=== PATIENT | male | born 1965 | race Caucasian/White ===

== ENCOUNTER 2016-12-21 11:49 | Emergency (ER) | payer MEDICAID ==
[~2016-12-21] VITALS: Ht 182.9 cm; Wt 105.7 kg
[2016-12-21] MEDS ORDERED: SODIUM CHLORIDE 0.9% 1,000 ML IVB ONE (12:33)
[2016-12-21] MEDS ORDERED: HYDROmorphone HCL 2 MG/ML VL IV ONE (12:45)
[2016-12-21] MEDS ORDERED: ONDANSETRON HCL 4 MG/2 ML VIAL IV ONE (12:45)
[2016-12-21 12:55] LABS: Basophils # (auto) 0 uL; Basophils % (auto) 0.3 % (0.0-2.0); CONDITION Y; Eosinophils # (auto) 0.1 uL; Eosinophils % (auto) 0.5 % (0.0-7.0); Hemoglobin 18.5 g/dL (13.5-17.5); Lymphocytes # (auto) 1.3 uL; Lymphocytes % (auto) 12.6 % (10.0-50.0); Mean Corpuscular Hemoglobin 32.1 pg (28.0-32.0); Mean Corpuscular Hgb Conc. 34.9 g/dL (32.0-36.0); Mean Corpuscular Volume 92.1 fL (80.0-100.0); Mean Platelet Volume 9.7 fL (7.4-10.4); Monocytes # (auto) 0.7 uL; Monocytes % (auto) 7.1 % (0.0-12.0); Neutrophils # (auto) 8.3 uL; Neutrophils % (auto) 79.5 % (37.0-80.0); Platelet Count (auto) 206 10^3/uL (140-450); Red Cell Distribution Width 13.2 % (11.6-16.0); White Blood Cell 10.4 10^3/uL (4.4-10.8)
[2016-12-21 13:13] LABS: Albumin 3.8 g/dL (3.4-5.0); BUN/Creatinine Ratio 26.3; Calcium 9.2 mg/dL (8.5-10.1)
[2016-12-21 13:16] LABS: Bilirubin, Total 1.1 mg/dL (0.2-1.0)
[2016-12-21 13:19] LABS: INR 0.98 (0.9-1.15); Partial Thromboplastin Time 28.2 sec (22.64-33.71); Prothrombin Time 10.7 sec (9.37-12.3)
[2016-12-21 13:26] LABS: Potassium 2.9 mmol/L (3.5-5.1)
[2016-12-21] MEDS ORDERED: POTASSIUM CHL 20MEQ/100ML 100 ML IV ONE (13:45)
[2016-12-21 14:04] LABS: Urine Bilirubin Negative (Negative); Urine Blood Negative /uL (Negative); Urine Color Yellow (Yellow); Urine Glucose Normal (Normal); Urine Mucus FEW (None Seen); Urine Nitrite Negative (Negative); Urine RBC 1 /hpf (0 - 3); Urine Squamous Epithelial Cell FEW /hpf (<5); Urine Urobilinogen Normal (Negative)
[2016-12-21 14:09] LABS: Urine Ketone 2+ (Negative)
[2016-12-21 16:09] VITALS: BP 138/96
== END 2016-12-21 16:21 | disposition home or self-care (01) ==
LOC: ER 11:49
DX: N23 Unspecified renal colic (principal); E87.6 Hypokalemia; F17.210 Nicotine dependence, cigarettes, uncomplicated; F12.10 Cannabis abuse, uncomplicated
CPT/HCPCS: 36415; 71010; 74176; 80053; 81001; 82150; 83605; 83690; 83735; 85025; 85610; 85730; 93005; 94761; 96361; 96365; 96366; 96375; 99285; J1170; J2405; J3480; J7030

== ENCOUNTER 2017-01-28 14:03 | Inpatient (IN) | payer MEDICAID ==
[~2017-01-28] VITALS: Ht 182.9 cm; Wt 99.7 kg
[2017-01-28] MEDS ORDERED: PANTOPRAZOLE 40 MG/10 ML VIAL IV STA (14:41)
[2017-01-28] MEDS ORDERED: SODIUM CHLORIDE 0.9% 1,000 ML IVB ONE (14:41)
[2017-01-28] MEDS ORDERED: ONDANSETRON HCL 4 MG/2 ML VIAL IV ONE (14:45)
[2017-01-28] MEDS ORDERED: HYDROmorphone HCL 2 MG/ML VL IV ONE (14:45)
[2017-01-28 15:00] LABS: Basophils # (auto) 0.1 uL; Basophils % (auto) 0.5 % (0.0-2.0); Eosinophils # (auto) 0 uL; Eosinophils % (auto) 0.2 % (0.0-7.0); Hematocrit 51.6 % (41.0-53.0); Hemoglobin 18.6 g/dL (13.5-17.5); Lymphocytes # (auto) 1.5 uL; Lymphocytes % (auto) 10.7 % (10.0-50.0); Mean Corpuscular Hemoglobin 32.6 pg (28.0-32.0); Mean Corpuscular Volume 90.7 fL (80.0-100.0); Mean Platelet Volume 9.4 fL (7.4-10.4); Monocytes # (auto) 0.4 uL; Neutrophils % (auto) 85.6 % (37.0-80.0); Nucleated Red Blood Cells % 0.1 %; Platelet Count (auto) 182 10^3/uL (140-450); Red Cell Distribution Width 13.4 % (11.6-16.0)
[2017-01-28 15:16] LABS: Potassium 3.6 mmol/L (3.5-5.1)
[2017-01-28 15:20] LABS: Albumin 3.9 g/dL (3.4-5.0); BUN/Creatinine Ratio 17.8; Calcium 8.9 mg/dL (8.5-10.1)
[2017-01-28 15:22] LABS: Bilirubin, Total 0.9 mg/dL (0.2-1.0); Total Protein 7.5 g/dL (6.4-8.2)
[2017-01-28] MEDS ORDERED: cefTRIAXone 1GM/50ML D5W 50 ML IV ONE (16:15)
[2017-01-28] MEDS ORDERED: TEMAZEPAM 15 MG CAP PO PRN (16:15)
[2017-01-28] MEDS ORDERED: LORazepam 0.5 MG TAB PO PRN (16:15)
[2017-01-28] MEDS ORDERED: PANTOPRAZOLE 40 MG/10 ML VIAL IV ONE (16:15)
[2017-01-28] MEDS ORDERED: DEXTROSE (50%) 50ML SYRG IV PRN (16:15)
[2017-01-28] MEDS ORDERED: HYDROcodone-ACET 5/325MG TAB PO PRN (16:15)
[2017-01-28] MEDS ORDERED: MORPHINE SULF INJ 2 MG/ML SYRINGE 1ML IV PRN (16:15)
[2017-01-28] MEDS ORDERED: PROMETHAZINE HCL 25 MG/ML 1ML IV PRN (16:15)
[2017-01-28] MEDS ORDERED: ACETAMINOPHEN 500 MG TAB PO PRN (16:15)
[2017-01-28] MEDS: SODIUM CHLORIDE 0.9% 1,000 ML IV SCH ×2 (16:22→23:50)
[2017-01-28 17:02] LABS: Urine Bilirubin Negative (Negative); Urine Blood 2+ /uL (Negative); Urine Color Yellow (Yellow); Urine Glucose Normal (Normal); Urine Hyaline Cast FEW /lpf (0 - 2); Urine Ketone 3+ (Negative); Urine Mucus FEW (None Seen); Urine Nitrite Negative (Negative); Urine RBC 3 /hpf (0 - 3); Urine Squamous Epithelial Cell FEW /hpf (<5); Urine Urobilinogen Normal (Negative); Urine pH 5.5 (5.0-8.0)
[2017-01-28] MEDS: metroNIDAZOLE 500MG/100ML 100 ML IV SCH ×3 (18:00→20:19)
[2017-01-28] MEDS: ACCU-CHEK COMFORT CURVE STRIP VI SCH ×2 (18:16→23:50)
[2017-01-28 21:20] VITALS: BP 154/88
[2017-01-28 22:00] VITALS: BP 154/88
[2017-01-29 05:00] VITALS: BP 104/67
[2017-01-29] MEDS: ACCU-CHEK COMFORT CURVE STRIP VI SCH (05:45)
[2017-01-29] MEDS: metroNIDAZOLE 500MG/100ML 100 ML IV SCH (05:46)
[2017-01-29 06:50] LABS: Basophils # (auto) 0 uL; Basophils % (auto) 0.4 % (0.0-2.0); Eosinophils # (auto) 0 uL; Eosinophils % (auto) 0.1 % (0.0-7.0); Hematocrit 45.1 % (41.0-53.0); Hemoglobin 15.7 g/dL (13.5-17.5); Lymphocytes # (auto) 1.5 uL; Lymphocytes % (auto) 12.5 % (10.0-50.0); Mean Corpuscular Hemoglobin 32.3 pg (28.0-32.0); Mean Corpuscular Hgb Conc. 34.8 g/dL (32.0-36.0); Mean Corpuscular Volume 92.8 fL (80.0-100.0); Mean Platelet Volume 9.2 fL (7.4-10.4); Monocytes % (auto) 8.4 % (0.0-12.0); Neutrophils # (auto) 9.5 uL; Neutrophils % (auto) 78.6 % (37.0-80.0); Platelet Count (auto) 154 10^3/uL (140-450); Red Cell Distribution Width 13.8 % (11.6-16.0); White Blood Cell 12.1 10^3/uL (4.4-10.8)
[2017-01-29 06:58] LABS: BUN/Creatinine Ratio 24.3; Calcium 8.1 mg/dL (8.5-10.1); Potassium 3.2 mmol/L (3.5-5.1)
[2017-01-29 07:00] LABS: Albumin 3.1 g/dL (3.4-5.0); Bilirubin, Total 0.6 mg/dL (0.2-1.0)
[2017-01-29 08:25] VITALS: BP 102/55
[2017-01-29] MEDS ORDERED: cefTRIAXone 1GM/50ML D5W 50 ML IV SCH (09:00)
[2017-01-29] MEDS ORDERED: PANTOPRAZOLE 40 MG TAB PO SCH (10:00)
[2017-01-29 11:57] VITALS: BP 115/66
[2017-01-31] MEDS ORDERED: MANNITOL FTV 25% 12.5 GM/50 ML 50 ML IV ONE (17:30)
== END 2017-01-29 13:30 | disposition left against medical advice (07) | DRG 465 ==
LOC: ER 14:03 → OVERFLOW 14:04 → WEST WING 21:02
PROVIDERS: ADMIT Internal Medicine; ATTEND Internal Medicine
DX: N13.2 Hydronephrosis with renal and ureteral calculous obstruction (principal); I10 Essential (primary) hypertension; Z53.21 Procedure and treatment not carried out due to patient leaving prior to being seen by health care provider; E66.3 Overweight; Z87.442 Personal history of urinary calculi; Z87.891 Personal history of nicotine dependence; Z68.29 Body mass index [BMI] 29.0-29.9, adult
CPT/HCPCS: 36415; 71010; 74176; 76705; 80053; 81001; 82150; 82962; 83036; 83690; 85025; 85652; 86141; 93005; 94761; 96361; 96365; 96375; C9113; J0696; J2405; J3490

== ENCOUNTER 2018-08-17 11:11 | Emergency (ER) | payer MEDICAID ==
[~2018-08-17] VITALS: Ht 182.9 cm; Wt 108.9 kg
[2018-08-17 11:20] VITALS: BP 140/105
[2018-08-17] MEDS ORDERED: ONDANSETRON HCL 4 MG/2 ML VIAL IV ONE (11:30)
[2018-08-17 11:56] LABS: Basophils # (auto) 0.1 uL; Basophils % (auto) 1.1 % (0.0-2.0); Eosinophils # (auto) 0.1 uL; Hemoglobin 19.7 g/dL (13.5-17.5); Lymphocytes # (auto) 1.5 uL; Monocytes # (auto) 0.6 uL; Nucleated Red Blood Cells % 0.1 %; White Blood Cell 11.3 10^3/uL (4.4-10.8)
[2018-08-17 11:58] LABS: Eosinophils % (auto) 0.5 % (0.0-7.0); Lymphocytes % (auto) 13.3 % (10.0-50.0); Mean Corpuscular Hemoglobin 32.4 pg (28.0-32.0); Mean Corpuscular Hgb Conc. 34.7 g/dL (32.0-36.0); Mean Corpuscular Volume 93.4 fL (80.0-100.0); Monocytes % (auto) 5.4 % (0.0-12.0); Neutrophils % (auto) 79.7 % (37.0-80.0); Platelet Count (auto) 161 10^3/uL (140-450); Red Blood Cells 6.09 10^6/uL (4.5-5.90); Red Cell Distribution Width 13.1 % (11.8-14.3)
[2018-08-17 11:59] LABS: Hematocrit 56.9 % (41.0-53.0)
[2018-08-17 12:10] LABS: Albumin 4.2 g/dL (3.4-5.0); Chloride 109 mmol/L (98-107); Potassium 3.5 mmol/L (3.5-5.1); Sodium 141 mmol/L (136-145)
[2018-08-17 12:16] LABS: Alanine Aminotransferase 41 U/L (16-61); Alkaline Phosphatase 85 U/L (45-117); Amylase 65 U/L (25-115); Anion Gap 10 (5-15); Aspartate Aminotransferase 22 U/L (15-37); BUN/Creatinine Ratio 25.3; Bilirubin, Total 0.7 mg/dL (0.2-1.0); Blood Urea Nitrogen 23 mg/dL (7-18); Calcium 8.8 mg/dL (8.5-10.1); Carbon Dioxide 22 mmol/L (21-32); GFR African American 112 mL/min; GFR Non-African American 92 mL/min; Glucose 129 mg/dL (74-106); Lipase 197 U/L (73-393); Total Protein 7.5 g/dL (6.4-8.2)
[2018-08-17] MEDS ORDERED: SODIUM CHLORIDE 0.9% 1,000 ML IVB ONE (12:17)
[2018-08-17] MEDS ORDERED: PANTOPRAZOLE 40 MG/10 ML VIAL IV ONE (12:30)
[2018-08-17] MEDS ORDERED: PROMETHAZINE HCL 25 MG/ML 1ML IV ONE (14:00)
== END 2018-08-17 19:59 | disposition left against medical advice (07) ==
LOC: ER 11:11
DX: K57.90 Diverticulosis of intestine, part unspecified, without perforation or abscess without bleeding (principal); D75.1 Secondary polycythemia; R11.2 Nausea with vomiting, unspecified; F17.210 Nicotine dependence, cigarettes, uncomplicated; F12.90 Cannabis use, unspecified, uncomplicated
CPT/HCPCS: 36415; 71045; 74176; 80053; 82150; 83690; 83735; 84484; 85025; 93005; 94761; 96361; 96374; 96375; 99284; C9113; J2405; J7030

== ENCOUNTER 2019-01-06 23:23 | Emergency (ER) | payer MEDICAID | END 2019-01-07 00:21 | disposition left against medical advice (07) | LOC: ER 23:27 | DX: R11.2 Nausea with vomiting, unspecified (principal); Z53.21 Procedure and treatment not carried out due to patient leaving prior to being seen by health care provider ==

== ENCOUNTER 2021-05-01 14:49 | Emergency (ER) | payer MEDICAID ==
[~2021-05-01] VITALS: Ht 182.9 cm; Wt 104.3 kg
[2021-05-01 15:08] VITALS: BP 174/105
[2021-05-01 17:33] LABS: Basophils # (auto) 0.1 10 ^3/uL (0-0.2); Eosinophils # (auto) 0.6 10 ^3/uL (0-0.8); Eosinophils % (auto) 6.7 % (0.0-7.0); Hematocrit 49.2 % (41.0-53.0); Lymphocytes # (auto) 1.3 10 ^3/uL (0.4-5.4); Lymphocytes % (auto) 14.6 % (10.0-50.0); Mean Corpuscular Hemoglobin 31.1 pg (28.0-32.0); Mean Corpuscular Hgb Conc. 34.6 g/dL (32.0-36.0); Monocytes # (auto) 0.9 10 ^3/uL (0-1.3); Monocytes % (auto) 9.9 % (0.0-12.0); Neutrophils # (auto) 6.2 10 ^3/uL (1.6-8.6); Neutrophils % (auto) 67.8 % (37.0-80.0); Nucleated Red Blood Cells % 0.1 %; Red Blood Cells 5.47 10^6/uL (4.5-5.90); Red Cell Distribution Width 13.6 % (11.8-14.3); White Blood Cell 9.1 10^3/uL (4.4-10.8)
[2021-05-01 17:52] LABS: Albumin 3.9 g/dL (3.4-5.0); Calcium 8.5 mg/dL (8.5-10.1); Potassium 3.4 mmol/L (3.5-5.1)
[2021-05-01 18:00] LABS: BUN/Creatinine Ratio 24.6; Bilirubin, Total 0.6 mg/dL (0.2-1.0); CRP High Sensitivity 1.18 mg/dL (< 0.3); Total Protein 7.6 g/dL (6.4-8.2)
[2021-05-01] MEDS ORDERED: IOHEXOL 350 MG/ML 100ML IJ ONE (20:32)
== END 2021-05-01 21:28 | disposition left against medical advice (07) ==
LOC: ER 14:49
DX: R06.02 Shortness of breath (principal); F17.210 Nicotine dependence, cigarettes, uncomplicated; F12.10 Cannabis abuse, uncomplicated; J44.9 Chronic obstructive pulmonary disease, unspecified; Z53.29 Procedure and treatment not carried out because of patient's decision for other reasons; Z20.822 Contact with and (suspected) exposure to COVID-19
CPT/HCPCS: 36415; 36600; 80053; 82728; 82805; 83880; 84484; 85025; 85379; 86141; 87426; 93005

== ENCOUNTER 2022-05-30 21:09 | Inpatient (IN) | payer MEDICAID ==
[~2022-05-30] VITALS: Ht 182.9 cm; Wt 113.0 kg
[2022-05-30 21:49] LABS: Basophils # (auto) 0.1 10 ^3/uL (0-0.2); Basophils % (auto) 1.2 % (0.0-2.0); Eosinophils # (auto) 0.4 10 ^3/uL (0-0.8); Eosinophils % (auto) 4.7 % (0.0-7.0); Hematocrit 51.8 % (41.0-53.0); Hemoglobin 18.5 g/dL (13.5-17.5); Lymphocytes # (auto) 1.9 10 ^3/uL (0.4-5.4); Lymphocytes % (auto) 23.4 % (10.0-50.0); Mean Corpuscular Hemoglobin 33.4 pg (28.0-32.0); Mean Corpuscular Hgb Conc. 35.6 g/dL (32.0-36.0); Mean Corpuscular Volume 93.7 fL (80.0-100.0); Monocytes # (auto) 0.7 10 ^3/uL (0-1.3); Monocytes % (auto) 8.6 % (0.0-12.0); Neutrophils % (auto) 62.1 % (37.0-80.0); Nucleated Red Blood Cells % 0.2 %; Red Blood Cells 5.53 10^6/uL (4.5-5.90); Red Cell Distribution Width 13.8 % (11.8-14.3)
[2022-05-30 22:03] LABS: Albumin 3.5 g/dL (3.4-5.0); BUN/Creatinine Ratio 18.1; Calcium 8.9 mg/dL (8.5-10.1); Potassium 3.6 mmol/L (3.5-5.1)
[2022-05-30 22:06] LABS: Bilirubin, Total 0.5 mg/dL (0.2-1.0); Total Protein 6.8 g/dL (6.4-8.2)
[2022-05-30 22:33] LABS: INR 1.03 (0.9-1.15); Partial Thromboplastin Time 27.3 sec (24.6-33.4)
[2022-05-30] MEDS ORDERED: FUROSEMIDE 40 MG/4 ML VIAL IV ONE (23:30)
[2022-05-30 23:50] LABS: Urine Bacteria NONE SEEN /hpf (None Seen); Urine Blood Negative /uL (Negative); Urine Mucus FEW (None Seen); Urine Specific Gravity 1.016 (1.001-1.035); Urine WBC 1 /hpf (0 - 3)
[2022-05-31] MEDS ORDERED: cefTRIAXone 1GM/50ML D5W 50 ML IV ONE (00:45)
[2022-05-31] MEDS ORDERED: AZITHROMYCIN 500MG/ 250ML 250 ML IV ONE (00:45)
[2022-05-31] MEDS ORDERED: ACETAMINOPHEN 325 MG TAB PO PRN (01:00)
[2022-05-31] MEDS ORDERED: ONDANSETRON HCL 4 MG/2 ML VIAL IV PRN (01:00)
[2022-05-31] MEDS ORDERED: MORPHINE SULFATE INJ 2 MG/ml SYRG IV PRN (01:00)
[2022-05-31] MEDS ORDERED: NITROGLYCERIN 0.4 MG SL TAB SL PRN (01:00)
[2022-05-31] MEDS ORDERED: TEMAZEPAM 15 MG CAP PO PRN (01:00)
[2022-05-31] MEDS ORDERED: methylPREDNISolone SOD SUCC 125 MG/2 ML VL IV ONE (01:00)
[2022-05-31] MEDS ORDERED: ALBUTEROL SULF 2.5 MG/0.5ML(0.5%) NEB SOLN NEB PRN (01:00)
[2022-05-31] MEDS ORDERED: IPRATROPIUM BROM 0.5 MG/2.5ML INH SOL NEB PRN (01:00)
[2022-05-31 01:34] VITALS: BP 131/88
[2022-05-31] MEDS ORDERED: FUROSEMIDE 40 MG TAB PO SCH (06:00)
[2022-05-31 08:00] VITALS: BP 116/77
[2022-05-31] MEDS ORDERED: ENOXAPARIN SOD 40 MG/0.4 ML SYRINGE SC SCH (10:00)
[2022-05-31] MEDS ORDERED: PANTOPRAZOLE 40 MG TAB PO SCH (10:00)
[2022-05-31] MEDS ORDERED: AZITHROMYCIN 500MG/ 250ML 250 ML IV SCH (22:00)
[2022-05-31] MEDS ORDERED: cefTRIAXone 1GM/50ML D5W 50 ML IV SCH (22:00)
[2022-05-31] MEDS ORDERED: ATORVASTATIN 20 MG TAB PO SCH (22:00)
== END 2022-05-31 11:26 | disposition left against medical advice (07) | DRG 143 ==
LOC: ER 21:11 → TELE 05-31 01:01
PROVIDERS: ADMIT Nurse Practitioner; ATTEND Internal Medicine Pulmonary Disease
PROC: 0W993ZZ Drainage of Right Pleural Cavity, Percutaneous Approach (ICD-10-PCS; principal; 2022-05-31)
DX: J90 Pleural effusion, not elsewhere classified (principal); J96.01 Acute respiratory failure with hypoxia; I31.39 Other pericardial effusion (noninflammatory); J18.9 Pneumonia, unspecified organism; F17.210 Nicotine dependence, cigarettes, uncomplicated; Z53.21 Procedure and treatment not carried out due to patient leaving prior to being seen by health care provider; Z20.822 Contact with and (suspected) exposure to COVID-19; J44.0 Chronic obstructive pulmonary disease with (acute) lower respiratory infection; Z80.1 Family history of malignant neoplasm of trachea, bronchus and lung; Z80.0 Family history of malignant neoplasm of digestive organs
CPT/HCPCS: 36415; 71045; 71250; 76604; 76942; 80053; 81001; 83880; 83986; 84484; 85025; 85610; 85730; 87070; 87205; 87426; 89051; 93005; 93306; 96365; 96368; 96372; 96375; G0378; J0696

== ENCOUNTER 2024-05-31 02:07 | Inpatient (IN) | payer MEDICAID ==
[~2024-05-31] VITALS: Ht 185.4 cm; Wt 105.0 kg
--- NOTE | 2024-05-31 02:24 | ED.PDOC ---
SOB-HPI HPI Comments 59-year-old male came to emergency room due to shortness of breath. Patient does have history of COPD and arthritis. States for the past few days he has been having productive cough with shortness of breath accompanied with right sided chest discomfort, sharp, worsens with coughing. Worsening of symptoms of the patient to come to the ER Chief Complaint: Shortness of breath Time Seen by MD: 02:22 Primary Care Provider: NONE Reviewed notes: Nurses Notes Information Source: Patient Mode of Arrival: Ambulatory Severity: Moderate Timing: Hours Duration: Since onset Context: At Rest, With Light Exertion PE Risk Factors: None History of: COPD Prehospital treatment: None Modifying Factors: Nothing Associated Signs and Symptoms: Cough, Chest Pain Quality: Sharp, Tightness Radiation: No Radiation Location: Chest (R) If cough with SOB: Productive Review of Systems REVIEW OF SYSTEMS: No fever, no chills, or fatigue HEENT: No sore throat, no earache, no congestion, no neck pain. Cardiac: (+) chest pain. No palpitations. Lungs: (+) shortness of breath, (+) cough. GI: No nausea, no vomiting, no diarrhea, no constipation, no abdominal pain : No dysuria, frequency, or urgency. No hematuria. Musculoskeletal: No joint pain , no joint swelling, no extremity edema. Skin: No rash, no itching. Neuro: No headache, no dizziness, no weakness Vital Signs Vital Signs Date Time Temp Pulse Resp B/P (MAP) Pulse Ox O2 Delivery O2 Flow Rate FiO2 05/31/24 04:58 99.8 100 18 113/67 (82) 96 99.8 05/31/24 02:59 Room Air Physical Exam General: Awake, alert and oriented. No acute distress. Skin: Skin in warm, dry and intact. Appropriate color for ethnicity. Nailbeds pink with no cyanosis. HEENT: The head is normocephalic and atraumatic. Conjunctivae are clear without exudates or hemorrhage. Sclera is non-icteric. EOM are intact. No signs of nystagmus. Eyelids are normal in appearance without swelling or lesions. Oral mucosa is pink and moist Neck: The neck is supple with normal range of motion. No JVD. Cardiac: Heart rate and rhythm are normal. No murmurs, gallops, or rubs are auscultated. Respiratory: No signs of respiratory distress. Positive wheezes and rhonchi bilaterally Abdominal: Abdomen is soft, non-tender without distention. Bowel sounds are present and normoactive in all four quadrants. Extremities: Upper and lower extremities are atraumatic in appearance without deformity or edema. Neurological: The patient is awake, alert and oriented to person, place, and time with normal speech. Speech is clear. There is no facial asymmetry. Psychiatric: Appropriate mood and affect. Good judgement and insight. No visual or auditory hallucinations. Past Medical History PAST MEDICAL HISTORY: Arthritis, COPD Surgical History: Denies all surgeries Family History Family History: Family hx of Cancer Social History Smoker: Cigarettes, Less Than 1 Pack/Day Alcohol: Rarely Drugs: Marijuana Lives In: Home EKG EKG : Pulse Rate (adult): 103 [place]: RAD Cardiac Rhythm: ST Comments Independent interpretation: No STEMI Was a procedure done? Was a procedure done?: No Differential Dx Differential Diagnosis: Asthma, Bronchitis, CHF, COPD, Myocardial infarction, Panic Attack, Pneumonia, Respiratory Distress, URI X-Ray, Labs, Meds, VS Vital Signs Date Time Temp Pulse Resp B/P (MAP) Pulse Ox O2 Delivery O2 Flow Rate FiO2 05/31/24 04:58 99.8 100 18 113/67 (82) 96 99.8 05/31/24 04:19 118/63 05/31/24 03:53 100.4 05/31/24 02:59 109 18 92 Room Air 05/31/24 02:59 101.1 109 18 118/63 (81) 92 101.1 05/31/24 02:58 101.1 05/31/24 02:38 103 05/31/24 02:35 101.1 109 18 118/63 (81) 92 05/31/24 02:24 103 Lab Test 05/31/24 02:48 05/31/24 02:31 Range/Units SARS-CoV-2 Antigen (Rapid) Negative NEGATIVE White Blood Count 8.9 4.4-10.8 10^3/uL Red Blood Count 4.91 4.5-5.90 10^6/uL Hemoglobin 15.3 13.5-17.5 g/dL Hematocrit 44.6 41.0-53.0 % Mean Corpuscular Volume 90.8 80.0-100.0 fL Mean Corpuscular Hemoglobin 31.2 28.0-32.0 pg Mean Corpuscular Hemoglobin Concent 34.3 32.0-36.0 g/dL Red Cell Distribution Width 13.6 11.8-14.3 % Platelet Count 167 140-450 10^3/uL Mean Platelet Volume 8.7 6.9-10.8 fL Neutrophils (%) (Auto) 79.5 37.0-80.0 % Lymphocytes (%) (Auto) 7.4 L 10.0-50.0 % Monocytes (%) (Auto) 11.2 0.0-12.0 % Eosinophils (%) (Auto) 1.1 0.0-7.0 % Basophils (%) (Auto) 0.8 0.0-2.0 % Neutrophils # (Auto) 7.1 1.6-8.6 10 ^3/uL Lymphocytes # (Auto) 0.7 0.4-5.4 10 ^3/uL Monocytes # (Auto) 1.0 0-1.3 10 ^3/uL Eosinophils # (Auto) 0.1 0-0.8 10 ^3/uL Basophils # (Auto) 0.1 0-0.2 10 ^3/uL Nucleated Red Blood Cells 0.0 % Sodium Level 137 136-145 mmol/L Potassium Level 3.4 L 3.5-5.1 mmol/L Chloride Level 106 98-107 mmol/L Carbon Dioxide Level 25 20-31 mmol/L Anion Gap 6 5-15 Blood Urea Nitrogen 16 9-23 mg/dL Creatinine 0.86 0.700-1.30 mg/dL Glomerular Filtration Rate Calc 99 >90 mL/min BUN/Creatinine Ratio 18.6 10.0-20.0 Serum Glucose 155 H 74-106 mg/dL Calcium Level 9.0 8.7-10.4 mg/dL Total Bilirubin 0.4 0.2-1.0 mg/dL Aspartate Amino Transferase (AST) 27 13-40 U/L Alanine Aminotransferase (ALT) 24 7-40 U/L Alkaline Phosphatase 63 46-116 U/L Total Protein 6.1 5.7-8.2 g/dL Albumin 3.8 3.2-4.8 g/dL Current Medications Medications (Trade) Dose Ordered Sig/Sung Route Start Time Stop Time Status Last Admin Prednisone 40 mg ONCE ONCE PO 05/31/24 02:30 05/31/24 02:31 DC 1/11/25 02:58 Acetaminophen (Tylenol Tablet) 650 mg ONCE ONCE PO 05/31/24 03:00 05/31/24 03:01 DC 05/31/24 02:58 Ceftriaxone Sodium/Dextrose 50 ml @ 50 mls/hr ONCE ONCE IV 05/31/24 04:00 05/31/24 04:59 DC 05/31/24 04:19 Furosemide (Lasix Injection) 20 mg ONCE ONCE IV 05/31/24 04:00 05/31/24 04:01 DC 05/31/24 04:19 Potassium Chloride (Klor-Con Tablet) 40 meq ONCE ONCE PO 05/31/24 04:00 05/31/24 04:07 DC 05/31/24 04:15 Time of 1ST Reevaluation: 02:19 Reevaluation 1ST: Unchanged Patient Education/Counseling: Diagnosis, Treatment Family Education/Counseling: No Family Present Departure 1 Departure Time of Disposition: 04:02 Impression: Primary Impression: Pleural effusion Disposition: ADMITTED INPATIENT Condition: Stable e-Prescriptions No Active Prescriptions or Reported Meds Comments 59 yo male with likely infectious pleural effusion, COPD exacerbation. Patient admitted for further treatment, evaluation and monitoring. Extensive evaluation was performed in attempt to identify or rule out: (See differential diagnosis section) The following tests were ordered, and results were reviewed by me: (See diagnostic results section) The following test were independently interpreted by me: Chest X ray right pleural effusion I reviewed and agreed with the following test results read by other providers: N/A I reviewed the following notes from the pt's past medical encounters: (None available at this time) Additional information was gathered from interviewing the following independent historians: N/A Discussion of management or test interpretation with external physician/other qualified health senior care manager: N/A Addressed an acute or chronic illness that poses a threat to life or bodily function: Pleural efffusion, COPD exacerbation Decision regarding hospitalization or escalation of hospital level of care: Risk and benefits of admission for further treatment of patient's condition was considered. Due to patient's current clinical condition, high risk of decline and poor outcome if discharged and need for further inpatient management and monitoring, patient will be admitted to the hospital. Drug therapy requiring intensive monitoring for toxicity: IV furosemide Parenteral controlled substances: N/A Decision regarding elective major surgery with identified patient or procedure risk factors: N/A Decision regarding emergency major surgery: N/A Decision not to resuscitate or to de-escalate care because of poor prognosis: N/A Diagnosis or treatment significantly limited by social determinants of health: N/A Critical Care Note Critical Care Time?: No Stability Stability form required: No Heart Score Heart Score: Heart Score Response (Comments) Value History Slightly Suspicious 0 EKG Normal 0 Age 45-64 1 Risk Factors 1 or 2 risk factors 1 Troponin Normal limit 0 Total 2 I personally scribed for DORIAN OLIVEROS MD ([email or web address]) on 05/31/24 at 02:24. Electronically submitted by Abilio Robert ([email or web address]). I personally scribed for DORIAN OLIVEROS MD ([email or web address]) on 05/31/24 at 02:38. Electronically submitted by Abilio Robert ([email or web address]). DORIAN OLIVEROS MD May 31, 2024 02:24
[2024-05-31 02:47] LABS: Basophils # (auto) 0.1 10 ^3/uL (0-0.2); Basophils % (auto) 0.8 % (0.0-2.0); Eosinophils # (auto) 0.1 10 ^3/uL (0-0.8); Eosinophils % (auto) 1.1 % (0.0-7.0); Hematocrit 44.6 % (41.0-53.0); Hemoglobin 15.3 g/dL (13.5-17.5); Lymphocytes # (auto) 0.7 10 ^3/uL (0.4-5.4); Lymphocytes % (auto) 7.4 % (10.0-50.0); Mean Corpuscular Hemoglobin 31.2 pg (28.0-32.0); Mean Corpuscular Hgb Conc. 34.3 g/dL (32.0-36.0); Mean Corpuscular Volume 90.8 fL (80.0-100.0); Monocytes % (auto) 11.2 % (0.0-12.0); Neutrophils # (auto) 7.1 10 ^3/uL (1.6-8.6); Neutrophils % (auto) 79.5 % (37.0-80.0); Platelet Count (auto) 167 10^3/uL (140-450); Red Blood Cells 4.91 10^6/uL (4.5-5.90); Red Cell Distribution Width 13.6 % (11.8-14.3); White Blood Cell 8.9 10^3/uL (4.4-10.8)
[2024-05-31] MEDS: ACETAMINOPHEN 325 MG TAB PO ONE (02:58)
[2024-05-31] MEDS: predniSONE 20 MG TAB PO ONE (02:58)
[2024-05-31 02:59] LABS: Alanine Aminotransferase 24 U/L (7-40); Albumin 3.8 g/dL (3.2-4.8); Alkaline Phosphatase 63 U/L (46-116); Anion Gap 6 (5-15); Aspartate Aminotransferase 27 U/L (13-40); BUN/Creatinine Ratio 18.6 (10.0-20.0); Blood Urea Nitrogen 16 mg/dL (9-23); Carbon Dioxide 25 mmol/L (20-31); Chloride 106 mmol/L (98-107); Sodium 137 mmol/L (136-145)
[2024-05-31 03:00] LABS: Bilirubin, Total 0.4 mg/dL (0.2-1.0); Total Protein 6.1 g/dL (5.7-8.2)
[2024-05-31 03:29] LABS: Glucose 155 mg/dL (74-106); Potassium 3.4 mmol/L (3.5-5.1)
--- NOTE | 2024-05-31 04:01 | DVH ---
CHEST RADIOGRAPH Indication: Chest pain shortness of breath Technique: Single frontal view of the chest was obtained Comparison: CHEST XRAY 1 VIEW on DOS: 05/31/22, CXR1 on DOS: 05/31/22, CHSTU on DOS: 05/31/22 IMPRESSION: The heart appears stable in size. There are bilateral coarsened interstitial markings with interstiti al airspace opacities and questionable nodular densities. Small right pleural effusion with likely as sociated atelectasis or consolidation. No discrete pneumothorax. Upper lobe emphysema.
[2024-05-31] MEDS: POTASSIUM CHL 20 Meq TABLET PO ONE (04:15)
[2024-05-31] MEDS: cefTRIAXone 2GM/50ML D5W 50 ML IV ONE (04:19)
[2024-05-31] MEDS: FUROSEMIDE 20 MG/2 ML VIAL IV ONE (04:19)
[2024-05-31 04:43] LABS: COVID19 ANTIGEN SOFIA FIA NEGATIVE (NEGATIVE)
[2024-05-31 05:30] VITALS: PULSE 92; RESP 28; O2SAT 89
[2024-05-31] MEDS ORDERED: IPRATROPIUM BROM 0.5 MG/2.5ML INH SOL NEB PRN (07:30)
[2024-05-31] MEDS ORDERED: ACETAMINOPHEN 325 MG TAB PO PRN (07:30)
[2024-05-31] MEDS ORDERED: DEXTROSE (50%) 50ML SYRG IV PRN (07:30)
[2024-05-31] MEDS ORDERED: ALBUTEROL SULF 2.5 MG/0.5ML(0.5%) NEB SOLN NEB PRN (07:30)
[2024-05-31] MEDS ORDERED: POTASSIUM CHL 20 Meq TABLET PO ONE (07:30)
[2024-05-31] MEDS ORDERED: MORPHINE SULFATE INJ 2 MG/ml SYRG IV PRN (07:30)
[2024-05-31] MEDS ORDERED: ONDANSETRON HCL 4 MG/2 ML VIAL IV PRN (07:30)
[2024-05-31] MEDS ORDERED: HYDROcodone-ACET 5/325MG TAB PO PRN (07:30)
--- NOTE | 2024-05-31 07:40 | DVHHP2 ---
History of Present Illness Reason for Visit: SOB, dizziness, & cough History of Present Illness Lamont Johnson is a 59-year-old male with past medical history of diabetes, COPD, CHF and arthritis who presents to the ED for shortness of breath, dizziness, and cough x1 week. Patient reports that he uses 2 L of nasal cannula on and off at home. Patient also reports that he had a exposure to recent sick contacts. Patient also reports that he is compliant with his medications. Patient also states that he uses half a pack of cigarettes per day, smokes marijuana, drinks occasionally, and denies illicit drug use. Patient also reports that he had some wheezing throughout the week but with no productive c ough. Patient denies chest pain, abdominal pain, nausea, vomiting, dizziness, chills, lightheadedness, and weakness. Cardiovascular: CHF Pulmonary: COPD Endocrine: Diabetes Past Surgical History: None Family History: Cancer, Other (Mom with colon and pancreatic cancer and father with lung cancer) Smoke: <1 pack per day ALCOHOL: occassional Drugs: Marijuana Lives: with Family Domestic Violence: Neg Review of Systems Constitutional: Yes: Fever, Other (Dizziness); No: Chills, Sweats, Weakness, Malaise Eyes: No: Pain, Vision change, Conjunctivae inflammation, Eyelid inflammation, Other, Redness ENT: No: Ear pain, Ear discharge, Nose pain, Nose discharge, Nose congestion, Mouth pain, Mouth swelling, Throat pain, Throat swelling, Other Respiratory: Cough, Shortness of breath; No: Dry, SOB with excertion, Wheezing, Hemoptysis, Pleuritic Pain, Sputum, Wheezing, Other Cardiovascular: No: Chest Pain, Palpitations, Orthopnea, Paroxysmal Noc. Dyspnea, Edema, Lt Headedness, Other Gastrointestinal: No: Nausea, Vomiting, Abdominal Pain, Diarrhea, Constipation, Melena, Hematochezia, Other Genitourinary: No Dysuria, No Frequency, No Incontinence, No Hematuria, No Retention, No Other Musculoskeletal: No: other, neck pain, shoulder pain, arm pain, back pain, hand pain, leg pain, foot pain Skin: No: Rash, Lesions, Jaundice, Bruising, Other Neurological: No: Weakness, Numbness, Incoordination, Change in speech, Confusion, Seizures, Other Allergies: Coded Allergies: NO KNOWN ALLERGIES (Unverified , 12/21/16) Medications Current Medications Medications Dose Ordered Sig/Sung Route Start Time Stop Time Status Last Admin Dose Admin Furosemide 40 mg DAILY IV 05/31/24 10:00 UNV Diagnostic Test (Pha) 1 strip ACHS 05/31/24 11:30 UNV Insulin Human Regular ACHS SC 05/31/24 11:30 UNV Dextrose 50 ml UD PRN IV 05/31/24 07:30 UNV Albuterol 2.5 mg Q6HWA NEB 05/31/24 12:00 UNV Albuterol 2.5 mg Q4HPRN PRN NEB 05/31/24 07:30 UNV Ipratropium [place] 0.5 mg Q6HWA NEB 05/31/24 12:00 UNV Ipratropium [place] 0.5 mg Q4HPRN PRN NEB 05/31/24 07:30 UNV Methylprednisolone Sodium Succinate 40 mg Q8HR IV 05/31/24 14:00 UNV Famotidine 20 mg DAILY IV 05/31/24 10:00 UNV Ceftriaxone Sodium 50 ml @ 100 mls/hr DAILY@09 IV 05/31/24 09:00 UNV Acetaminophen/ Hydrocodone Bitart 1 tab Q4HP PRN PO 05/31/24 07:30 UNV Ondansetron HCl 4 mg Q4HP PRN IV 05/31/24 07:30 UNV Acetaminophen 650 mg Q6HP PRN PO 05/31/24 07:30 UNV Morphine Sulfate 2 mg Q4HPRN PRN IV 05/31/24 07:30 UNV Exam Vital Signs Vital Signs Date Time Temp Pulse Resp B/P (MAP) Pulse Ox O2 Delivery O2 Flow Rate FiO2 05/31/24 07:00 86 24 117/74 (88) 91 05/31/24 05:30 Room Air* 0 21 05/31/24 04:58 99.8 99.8 General Appearance: Alert, Oriented X3, Cooperative, No acute distress HEENT: Atraumatic, PERRLA, EOMI, Mucous membr. moist/pink Respiratory: Normal air movement Cardiovascular: Normal S1, Normal S2, No murmurs Abdominal: Normal bowel sounds, Soft, No tenderness, No hepatospenomegaly, No masses Extremities: No clubbing, No cyanosis, Normal pulses Skin: No rashes, No breakdown, No significant lesion Neuro: Normal gait, Normal speech, Strength at 5/5 X4 ext, Normal tone, Sensation intact Psych/Mental Status: Mental status NL, Mood NL Labs/Xrays Labs Test 05/31/24 02:48 05/31/24 02:31 Range/Units SARS-CoV-2 Antigen (Rapid) Negative NEGATIVE White Blood Count 8.9 4.4-10.8 10^3/uL Red Blood Count 4.91 4.5-5.90 10^6/uL Hemoglobin 15.3 13.5-17.5 g/dL Hematocrit 44.6 41.0-53.0 % Mean Corpuscular Volume 90.8 80.0-100.0 fL Mean Corpuscular Hemoglobin 31.2 28.0-32.0 pg Mean Corpuscular Hemoglobin Concent 34.3 32.0-36.0 g/dL Red Cell Distribution Width 13.6 11.8-14.3 % Platelet Count 167 140-450 10^3/uL Mean Platelet Volume 8.7 6.9-10.8 fL Neutrophils (%) (Auto) 79.5 37.0-80.0 % Lymphocytes (%) (Auto) 7.4 L 10.0-50.0 % Monocytes (%) (Auto) 11.2 0.0-12.0 % Eosinophils (%) (Auto) 1.1 0.0-7.0 % Basophils (%) (Auto) 0.8 0.0-2.0 % Neutrophils # (Auto) 7.1 1.6-8.6 10 ^3/uL Lymphocytes # (Auto) 0.7 0.4-5.4 10 ^3/uL Monocytes # (Auto) 1.0 0-1.3 10 ^3/uL Eosinophils # (Auto) 0.1 0-0.8 10 ^3/uL Basophils # (Auto) 0.1 0-0.2 10 ^3/uL Nucleated Red Blood Cells 0.0 % Sodium Level 137 136-145 mmol/L Potassium Level 3.4 L 3.5-5.1 mmol/L Chloride Level 106 98-107 mmol/L Carbon Dioxide Level 25 20-31 mmol/L Anion Gap 6 5-15 Blood Urea Nitrogen 16 9-23 mg/dL Creatinine 0.86 0.700-1.30 mg/dL Glomerular Filtration Rate Calc 99 >90 mL/min BUN/Creatinine Ratio 18.6 10.0-20.0 Serum Glucose 155 H 74-106 mg/dL Calcium Level 9.0 8.7-10.4 mg/dL Total Bilirubin 0.4 0.2-1.0 mg/dL Aspartate Amino Transferase (AST) 27 13-40 U/L Alanine Aminotransferase (ALT) 24 7-40 U/L Alkaline Phosphatase 63 46-116 U/L Total Protein 6.1 5.7-8.2 g/dL Albumin 3.8 3.2-4.8 g/dL CHEST RADIOGRAPH Indication: Chest pain shortness of breath Technique: Single frontal view of the chest was obtained Comparison: CHEST XRAY 1 VIEW on DOS: 05/31/22, CXR1 on DOS: 05/31/22, CHSTU on DOS: 05/31/22 IMPRESSION: The heart appears stable in size. There are bilateral coarsened interstitial markings with interstitial airspace opacities and questionable nodular densities. Small right pleural effusion with likely associated atelectasis or consolidation. No discrete pneumothorax. Upper lobe emphysema. Assessment/Plan Assessment/Plan Assessment/Plan: Acute on chronic COPD exacerbation vs CHF exacerbation PNA Potassium replaced in ER Lasix given ER IV antibiotics-ceftriaxone Pain management IV steroids Influenza test COVID negative Chest x-ray noted EKG noted ESR CRP Lactic Respiratory treatments Famotidine Last echo on 05/31/2022 EF 55% Echo ordered Oxygen dependent patient uses 2 L nasal cannula at home Labs A.m. labs Diabetes HgbA1c ISS and Accu-Cheks FEN/PPX diet hl DVT ppx not indicated patient ambulating PUD ppx famotidine with the use of steroids Discussed plan of care with patient and nurse Home medications reconciled Admit to med surg Plan discussed with: Patient My Orders Orders - EWA [facility] DENTAL THERAPIST Procedure Category Date Status Time Furosemide Injection PHA 05/31/24 Logged (Lasix Injection) 10:00 Erythrocyte LAB 05/31/24 Logged Sedimentation Rate 07:23 C-Reactive Protein LAB 05/31/24 Logged 07:23 Lactic Acid W/ Reflex LAB 05/31/24 Logged Order 07:23 Hemoglobin A1c LAB 05/31/24 Logged 07:23 Glucose Blood PHA 05/31/24 Logged (Accu-Chek Comfort 11:30 Insulin R (Human) PHA 05/31/24 Logged (Insulin R) 11:30 Dextrose 50% Syringe PHA 05/31/24 Logged 07:30 Potassium Er Tablet PHA 05/31/24 Logged (Klor-Con Tablet) 07:30 Albuterol Medneb PHA 05/31/24 Logged (Ventolin Medneb) 12:00 Albuterol Medneb PHA 05/31/24 Logged (Ventolin Medneb) 07:30 Ipratropium Medneb PHA 05/31/24 Logged (Atrovent Medneb) 12:00 Ipratropium Medneb PHA 05/31/24 Logged (Atrovent Medneb) 07:30 Methylprednisolone PHA 05/31/24 Logged Sod Succ (Solu Medrol 14:00 Famotidine Injection PHA 05/31/24 Logged (Pepcid Injection) 10:00 Ceftriaxone 1gm/50ml PHA 05/31/24 Logged D5w (Rocephin) 09:00 Admit ADMIT 05/31/24 Transmitted 07:26 Allergies PRIYA 05/31/24 Transmitted 07:26 Hydrocodone-Acet PHA 05/31/24 Transmitted 5/325mg Tab ([place] 07:30 Ondansetron Hcl PHA 05/31/24 Transmitted (Zofran) 07:30 Complete Blood Count LAB 06/01/24 Verified 04:00 Comprehensive LAB 06/01/24 Verified Metabolic Panel 04:00 Cardiac DIET 05/31/24 Transmitted Diet-2gna,Lofat,Lochol Breakfast Echo 2d Mode Cardiac US 05/31/24 Transmitted DOP 07:26 Acetaminophen Tablet PHA 05/31/24 Transmitted (Tylenol Tablet) 07:30 Morphine Sulfate PHA 05/31/24 Transmitted Injection 07:30 Date of Service: May 31, 2024 Billing Provider: EWA PUGH Common Visit Codes: [id number] INP/OBS CARE (HIGH) EWA PUGH May 31, 2024 07:40
[2024-05-31] MEDS ORDERED: SERT-160 PO (07:42)
[2024-05-31] MEDS ORDERED: FENO145T27 PO (07:42)
[2024-05-31] MEDS ORDERED: ATOR20TA50 (07:42)
[2024-05-31] MEDS ORDERED: TAMS0.4C39 PO (07:42)
[2024-05-31] MEDS ORDERED: FURO40TA4 PO (07:42)
[2024-05-31] MEDS ORDERED: FUROSEMIDE 40 MG/4 ML VIAL IV SCH ×2 (07:45→10:00)
[2024-05-31 08:00] VITALS: PULSE 73; RESP 18; O2SAT 98
[2024-05-31] MEDS ORDERED: cefTRIAXone 1GM/50ML D5W 50 ML IV SCH (09:00)
[2024-05-31 09:46] VITALS: TEMP 98.2
[2024-05-31 10:00] LABS: Erythrocyte Sedimentation Rate 11 mm/hr (0-20)
[2024-05-31] MEDS ORDERED: FAMOTIDINE (10MG/ML) 2ML VL IV SCH (10:00)
[2024-05-31 10:07] VITALS: BP 116/72; PULSE 84; RESP 22; O2SAT 98
[2024-05-31] MEDS: IPRATROPIUM BROM 0.5 MG/2.5ML INH SOL NEB SCH (11:30)
[2024-05-31] MEDS ORDERED: ACCU-CHEK COMFORT CURVE STRIP VI SCH (11:30)
[2024-05-31] MEDS ORDERED: InsuLIN REG 1unit/0.01ml Soln (100units/ml) SC SCH (11:30)
[2024-05-31] MEDS: ALBUTEROL SULF 2.5 MG/0.5ML(0.5%) NEB SOLN NEB SCH (11:30)
[2024-05-31] MEDS ORDERED: methylPREDNISolone SOD SUCC 40 MG/ML VL IV SCH (14:00)
--- NOTE | 2024-06-04 13:46 | ECG ---
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
== END 2024-05-31 10:50 | disposition left against medical advice (07) | DRG 140 ==
LOC: ER 02:07 → OVERFLOW 07:26
DX: J44.1 Chronic obstructive pulmonary disease with (acute) exacerbation (principal); J18.9 Pneumonia, unspecified organism; I50.9 Heart failure, unspecified; J44.0 Chronic obstructive pulmonary disease with (acute) lower respiratory infection; Z99.81 Dependence on supplemental oxygen; E11.9 Type 2 diabetes mellitus without complications; F17.210 Nicotine dependence, cigarettes, uncomplicated; Z20.822 Contact with and (suspected) exposure to COVID-19; Z80.1 Family history of malignant neoplasm of trachea, bronchus and lung; Z80.0 Family history of malignant neoplasm of digestive organs
CPT/HCPCS: 36415; 71045; 80053; 83036; 83605; 85025; 85652; 86141; 87426; G0378